=== PATIENT | female | born 1945 | race Caucasian/White ===

== ENCOUNTER 2017-07-26 12:07 | Inpatient (IN) | payer MEDICARE, BC ==
[2017-07-18 16:24] LABS: BASOPHILS # (AUTO) 0.1 X10'3 (0-0.2); BASOPHILS % (AUTO) 0.7 % (0-1); EOSINOPHILS # (AUTO) 0.3 X10'3 (0-0.9); EOSINOPHILS % (AUTO) 3.4 % (0-6); LYMPHOCYTES # (AUTO) 1.4 X10'3 (1.1-4.8); LYMPHOCYTES % (AUTO) 15.2 % (21-51); MEAN CORPUSCULAR HEMOGLOBIN 29.7 PG (27.0-31.0); MEAN CORPUSCULAR HGB CONC 33.5 % (33.0-36.5); MEAN CORPUSCULAR VOLUME 88.7 FL (78-98); MEAN PLATELET VOLUME 7.7 FL (7.4-10.4); MONOCYTES # (AUTO) 0.9 X10'3 (0-0.9); MONOCYTES % (AUTO) 9.3 % (2-12); NEUTROPHILS # (AUTO) 6.8 X10'3 (1.8-7.7); NEUTROPHILS % (AUTO) 71.4 % (42-75); PRE OP HEMATOCRIT 36.6 % (35.0-45.0); PRE OP HEMOGLOBIN 12.3 g/dL (12.0-16.0); PRE OP PLATELET COUNT 330 X10'3 (140-440); RED BLOOD COUNT 4.13 X10'6 (4.20-5.60); RED CELL DISTRIBUTION WIDTH 13.5 % (11.5-14.5)
[2017-07-18 16:36] LABS: PRE OP PROTIME 10.5 SECONDS (9.0-12.0)
[2017-07-18 16:48] LABS: ALBUMIN 3.9 G/DL (3.4-5.0); ALKALINE PHOSPHATASE 102 IU/L (46-116); BLOOD UREA NITROGEN 30 MG/DL (7-18); BUN/CREATININE RATIO 17.5 (6.6-38.0); CALCIUM 9.6 MG/DL (8.5-10.1); CHLORIDE 106 MMOL/L (99-107); CREATININE 1.71 MG/DL (0.40-0.90); PRE OP ALT 18 U/L (30-65); PRE OP ANION GAP 10 (8-16); PRE OP AST 16 U/L (10-37); PRE OP BILIRUB, TOTAL 0.3 MG/DL (0.0-1.0); PRE OP GLUCOSE 101 MG/DL (70-104); PRE OP POTASSIUM 4.3 MMOL/L (3.4-5.1); PRE OP SODIUM 144 MMOL/L (135-145); TOTAL CARBON DIOXIDE 28.3 MMOL/L (24-32); eGFR 29 ML/MIN
[~2017-07-26] VITALS: Ht 174 cm; Wt 85.7 kg
[2017-07-26] VITALS (18 sets, daily range): BP systolic 83–133; BP diastolic 46–80
[~2017-07-26 12:07] MED LIST: ATOR20TA PO; CLOP75TA35 PO; HYDR-565 PO; INSULIN PUMP; LEVO112T5 PO; ceFAZolin 2gm in dextrose, iso 100 ML IV ONE; famotidine 20mg tablet PO ONE; ringers solution, lacted 1,000 ML IV SCH; vancomycin inj 1,500 MG in normal saline 300ml IV soln IV ONE
[2017-07-26] MEDS ORDERED: tetracaine 1% (10mg/ml) pres. free inj. ONE (13:49)
[2017-07-26] MEDS ORDERED: MIDAZolam 1mg/ml 10ml vial ONE (13:51)
[2017-07-26] MEDS ORDERED: morphine sulfate /PF 0.5 MG/ML 10mL ampul ONE (13:51)
[2017-07-26] MEDS ORDERED: phenylephrine 10mg/ml inj. ONE (14:17)
[2017-07-26] MEDS ORDERED: albumin (Human) 5% 250ml 250 ML IV ONE ×2 (14:43→15:29)
[2017-07-26] MEDS ORDERED: ringers solution, lacted 1,000 ML IV SCH (14:44)
[2017-07-26] MEDS ORDERED: labetalol 20mg/4ml (5mg/ml) syringe IV PRN (14:45)
[2017-07-26] MEDS ORDERED: hydrALAZINE 20mg/ml inj. IV PRN (14:45)
[2017-07-26] MEDS ORDERED: ondansetron/PF 4mg/2ml inj IV PRN ×3 (14:45→16:05)
[2017-07-26] MEDS ORDERED: fentaNYL/PF 50MCG/1 ML 2ML syringe IV PRN ×2 (14:45)
[2017-07-26] MEDS ORDERED: morphine 4 MG/ML inj SYRINge IV PRN ×2 (14:45)
[2017-07-26] MEDS ORDERED: diphenhydrAMINE 50 mg/ml inj IV PRN (14:50)
[2017-07-26] MEDS ORDERED: ePHEDrine 50MG/ML INJ. ONE (14:50)
[2017-07-26] MEDS ORDERED: acetaminophen 325mg tablet PO PRN (16:05)
[2017-07-26] MEDS ORDERED: bisacodyl 10mg suppository rectal RC PRN (16:05)
[2017-07-26] MEDS ORDERED: diphenhydrAMINE 25mg capsule PO PRN (16:05)
[2017-07-26] MEDS ORDERED: HYDROmorphone inj. 0.5 MG/0.5 ML DISP.SYRIN IV PRN (16:05)
[2017-07-26] MEDS ORDERED: magnesium hydroxide 30ml (MOM) UD suspension PO PRN (16:05)
[2017-07-26] MEDS ORDERED: glucagon, human recombinant 1mg kit SUBCUT PRN (16:15)
[2017-07-26] MEDS ORDERED: dextrose 50%-water 50ml dispensing syringe IV PRN ×2 (16:15)
[2017-07-26] MEDS ORDERED: dextrose ORAL solution 15 GM/59 ML bottle PO PRN ×2 (16:15)
[2017-07-26] MEDS ORDERED: MESSAGE TO PHARMACY PO ONE (16:15)
[2017-07-26] MEDS ORDERED: insulin Lispro (HumaLOG) vial - multi-dose SQ SCH (16:15)
[2017-07-26] MEDS: diphenhydrAMINE 25mg capsule PO PRN (18:39)
[2017-07-26] MEDS ORDERED: HYDROmorphone 1 mg/ml syringe IV PRN (19:25)
[2017-07-26] MEDS: potassium Cl 20mEq in NS 1,000 ML IV SCH (19:28)
[2017-07-26] MEDS: sennosides 8.6mg tablet PO SCH (20:26)
[2017-07-26] MEDS ORDERED: insulin glargine (Lantus) pen - multi-dose SQ SCH (21:00)
[2017-07-26] MEDS: insulin pump.resvr SQ SCH (21:32)
[2017-07-26] MEDS: HYDROcodone/acetaminophen 10/325mg tab PO PRN (21:35)
[2017-07-27] MEDS: ceFAZolin 1GM/D5W- ADD-VANTAGE 50 ML IV SCH ×2 (00:08→08:29)
[2017-07-27] MEDS: diphenhydrAMINE 25mg capsule PO PRN (00:18)
[2017-07-27] MEDS: HYDROcodone/acetaminophen 10/325mg tab PO PRN ×5 (01:35→20:53)
[2017-07-27 02:00] VITALS: BP 92/56
[2017-07-27 05:00] VITALS: BP 97/58
[2017-07-27] MEDS: potassium Cl 20mEq in NS 1,000 ML IV SCH ×2 (05:24→18:47)
[2017-07-27] MEDS: insulin pump.resvr SQ SCH ×4 (07:00→20:54)
[2017-07-27 07:09] LABS: BASOPHILS % (AUTO) 0.5 % (0-1); EOSINOPHILS # (AUTO) 0.3 X10'3 (0-0.9); EOSINOPHILS % (AUTO) 3.6 % (0-6); HEMATOCRIT 31.2 % (35.0-45.0); HEMOGLOBIN 10.3 g/dl (12.0-16.0); LYMPHOCYTES # (AUTO) 1.2 X10'3 (1.1-4.8); LYMPHOCYTES % (AUTO) 14.5 % (21-51); MEAN CORPUSCULAR HEMOGLOBIN 29.4 PG (27.0-31.0); MEAN CORPUSCULAR HGB CONC 32.8 % (33.0-36.5); MEAN CORPUSCULAR VOLUME 89.5 FL (78-98); MEAN PLATELET VOLUME 8.1 FL (7.4-10.4); NEUTROPHILS # (AUTO) 6.1 X10'3 (1.8-7.7); NEUTROPHILS % (AUTO) 69.4 % (42-75); PLATELET COUNT 243 X10'3 (140-440); RED BLOOD COUNT 3.48 X10'6 (4.20-5.60); RED CELL DISTRIBUTION WIDTH 12.9 % (11.5-14.5); WHITE BLOOD COUNT 8.6 X10'3 (4.5-11.0)
[2017-07-27] MEDS ORDERED: ATOR20TA PO (07:36)
[2017-07-27] MEDS ORDERED: CLOP75TA15 PO (07:36)
[2017-07-27 07:46] LABS: ANION GAP 8 (8-16); CHLORIDE 107 MMOL/L (99-107); POTASSIUM 3.9 MMOL/L (3.5-5.1); SODIUM 142 MMOL/L (135-145)
[2017-07-27] MEDS: levoTHYROXINE 75mcg tablet PO SCH (08:29)
[2017-07-27] MEDS: clopidogrel 75mg tablet PO SCH (08:29)
[2017-07-27 10:00] VITALS: BP 103/49
[2017-07-27 18:00] VITALS: BP 127/61
[2017-07-27] MEDS: atorvastatin 20mg tablet PO SCH (20:51)
[2017-07-27] MEDS: sennosides 8.6mg tablet PO SCH (20:53)
[2017-07-27 22:00] VITALS: BP 108/56
[2017-07-28] MEDS: HYDROcodone/acetaminophen 10/325mg tab PO PRN ×5 (00:43→21:02)
[2017-07-28 06:00] VITALS: BP 136/61
[2017-07-28 06:25] LABS: BASOPHILS % (AUTO) 0.4 % (0-1); EOSINOPHILS # (AUTO) 0.2 X10'3 (0-0.9); EOSINOPHILS % (AUTO) 1.4 % (0-6); HEMATOCRIT 29.8 % (35.0-45.0); HEMOGLOBIN 9.9 g/dl (12.0-16.0); LYMPHOCYTES # (AUTO) 0.8 X10'3 (1.1-4.8); LYMPHOCYTES % (AUTO) 7.1 % (21-51); MEAN CORPUSCULAR HEMOGLOBIN 29.4 PG (27.0-31.0); MEAN CORPUSCULAR HGB CONC 33.3 % (33.0-36.5); MEAN CORPUSCULAR VOLUME 88.2 FL (78-98); MEAN PLATELET VOLUME 8.2 FL (7.4-10.4); MONOCYTES # (AUTO) 1.1 X10'3 (0-0.9); MONOCYTES % (AUTO) 10.2 % (2-12); NEUTROPHILS # (AUTO) 9.2 X10'3 (1.8-7.7); NEUTROPHILS % (AUTO) 80.9 % (42-75); PLATELET COUNT 216 X10'3 (140-440); RED BLOOD COUNT 3.38 X10'6 (4.20-5.60); RED CELL DISTRIBUTION WIDTH 13.4 % (11.5-14.5); WHITE BLOOD COUNT 11.3 X10'3 (4.5-11.0)
[2017-07-28] MEDS: insulin pump.resvr SQ SCH ×4 (07:00→21:00)
[2017-07-28] MEDS: potassium Cl 20mEq in NS 1,000 ML IV SCH (08:04)
[2017-07-28] MEDS: clopidogrel 75mg tablet PO SCH (09:41)
[2017-07-28] MEDS: levoTHYROXINE 75mcg tablet PO SCH (09:41)
[2017-07-28 18:00] VITALS: BP 146/61
[2017-07-28] MEDS: atorvastatin 20mg tablet PO SCH (21:00)
[2017-07-28] MEDS: sennosides 8.6mg tablet PO SCH (21:01)
[2017-07-28 22:00] VITALS: BP 127/67
[2017-07-29] MEDS: HYDROcodone/acetaminophen 10/325mg tab PO PRN ×4 (02:29→20:34)
[2017-07-29 05:00] VITALS: BP 103/65
[2017-07-29 06:43] LABS: BASOPHILS % (AUTO) 0.3 % (0-1); EOSINOPHILS # (AUTO) 0.4 X10'3 (0-0.9); EOSINOPHILS % (AUTO) 3.5 % (0-6); HEMATOCRIT 32.4 % (35.0-45.0); HEMOGLOBIN 10.7 g/dl (12.0-16.0); LYMPHOCYTES # (AUTO) 1.3 X10'3 (1.1-4.8); LYMPHOCYTES % (AUTO) 11.4 % (21-51); MEAN CORPUSCULAR HEMOGLOBIN 29.3 PG (27.0-31.0); MEAN CORPUSCULAR HGB CONC 33.1 % (33.0-36.5); MEAN CORPUSCULAR VOLUME 88.6 FL (78-98); MEAN PLATELET VOLUME 8.4 FL (7.4-10.4); MONOCYTES # (AUTO) 1.1 X10'3 (0-0.9); MONOCYTES % (AUTO) 9.8 % (2-12); NEUTROPHILS # (AUTO) 8.4 X10'3 (1.8-7.7); PLATELET COUNT 239 X10'3 (140-440); RED BLOOD COUNT 3.66 X10'6 (4.20-5.60); RED CELL DISTRIBUTION WIDTH 12.9 % (11.5-14.5); WHITE BLOOD COUNT 11.1 X10'3 (4.5-11.0)
[2017-07-29] MEDS: insulin pump.resvr SQ SCH ×4 (07:00→21:00)
[2017-07-29] MEDS: clopidogrel 75mg tablet PO SCH (08:14)
[2017-07-29] MEDS: levoTHYROXINE 75mcg tablet PO SCH (08:14)
[2017-07-29 19:00] VITALS: BP 145/78
[2017-07-29] MEDS: atorvastatin 20mg tablet PO SCH (20:28)
[2017-07-29] MEDS: sennosides 8.6mg tablet PO SCH (21:00)
[2017-07-29 22:00] VITALS: BP 150/57
[2017-07-30 05:00] VITALS: BP 128/66
[2017-07-30] MEDS: HYDROcodone/acetaminophen 10/325mg tab PO PRN ×2 (05:26→13:48)
[2017-07-30] MEDS: insulin pump.resvr SQ SCH ×2 (07:00→12:00)
[2017-07-30] MEDS: clopidogrel 75mg tablet PO SCH (09:38)
[2017-07-30] MEDS: levoTHYROXINE 75mcg tablet PO SCH (09:39)
[2017-07-30 10:00] VITALS: BP 124/58
[2017-07-30] MEDS ORDERED: insulin Lispro (HumaLOG) vial - multi-dose SQ ONE (10:55)
== END 2017-07-30 14:21 | DRG 617 ==
LOC: PAS 12:07 → ORTHO 4S 12:08 → PAS 16:04 → ORTHO 4S 16:04 → PAS 07-29 09:28 → UNDOADMIN 07-29 09:29 → ORTHO 4S 07-29 09:29 → ENPENDDIS 07-30 14:02 → ORTHO 4S 07-30 14:16
PROVIDERS: ADMIT Orthopaedic Surgery; ATTEND Orthopaedic Surgery
PROC: 0Y6N0ZF Detachment at Left Foot, Partial 5th Ray, Open Approach (ICD-10-PCS; principal; 2017-07-26 13:47)
DX: E10.621 Type 1 diabetes mellitus with foot ulcer (principal); D62 Acute posthemorrhagic anemia; L97.529 Non-pressure chronic ulcer of other part of left foot with unspecified severity; E03.9 Hypothyroidism, unspecified; E10.51 Type 1 diabetes mellitus with diabetic peripheral angiopathy without gangrene; E78.5 Hyperlipidemia, unspecified; N18.4 Chronic kidney disease, stage 4 (severe); E10.22 Type 1 diabetes mellitus with diabetic chronic kidney disease; I12.9 Hypertensive chronic kidney disease with stage 1 through stage 4 chronic kidney disease, or unspecified chronic kidney disease; M19.90 Unspecified osteoarthritis, unspecified site; G89.29 Other chronic pain; M54.9 Dorsalgia, unspecified; Z96.41 Presence of insulin pump (external) (internal); Z98.62 Peripheral vascular angioplasty status; Z91.011 Allergy to milk products; Z91.018 Allergy to other foods; Z79.899 Other long term (current) drug therapy; Z85.89 Personal history of malignant neoplasm of other organs and systems; Z92.3 Personal history of irradiation; Z87.891 Personal history of nicotine dependence
CPT/HCPCS: 36415; 80051; 80053; 82948; 83036; 84443; 85025; 85610; 85730; 97116; 97530; A6222; A6258; A6446; A6449; A7000; C1758; J0690; J1170; J1815; J2250; J2274; J2370; J3370; J3490; J7120; P9045; Q0163

== ENCOUNTER 2019-03-21 08:05 | Day surgery (SDC) | payer MEDICARE, BC ==
[~2019-03-21] VITALS: Ht 175.3 cm; Wt 75.7 kg
[~2019-03-21 08:05] MED LIST changes: +CLOP75TA15 PO; -CLOP75TA35 PO; -HYDR-565 PO; -ceFAZolin 2gm in dextrose, iso 100 ML IV ONE; -famotidine 20mg tablet PO ONE; -ringers solution, lacted 1,000 ML IV SCH; -vancomycin inj 1,500 MG in normal saline 300ml IV soln IV ONE
[2019-03-21] MEDS ORDERED: CLOP75TA35 PO (08:43)
[2019-03-21] MEDS ORDERED: HYDR-4353 PO (08:43)
[2019-03-21] MEDS ORDERED: BUPR-94 PO (08:43)
[2019-03-21] MEDS ORDERED: RAMI5CAP65 PO (08:43)
[2019-03-21] MEDS ORDERED: NAPR220T67 PO (08:43)
[2019-03-21] MEDS ORDERED: ACET-1008 PO (08:43)
[2019-03-21 09:23] VITALS: BP 112/70
== END 2019-03-21 09:25 | disposition home or self-care (01) ==
LOC: SSTAY O 08:05
PROVIDERS: ATTEND Radiology Diagnostic Radiology
DX: J90 Pleural effusion, not elsewhere classified (principal); E03.9 Hypothyroidism, unspecified; K21.9 Gastro-esophageal reflux disease without esophagitis; E78.5 Hyperlipidemia, unspecified; E11.40 Type 2 diabetes mellitus with diabetic neuropathy, unspecified; I12.9 Hypertensive chronic kidney disease with stage 1 through stage 4 chronic kidney disease, or unspecified chronic kidney disease; N18.9 Chronic kidney disease, unspecified; Z88.8 Allergy status to other drugs, medicaments and biological substances; Z91.09 Other allergy status, other than to drugs and biological substances; Z98.890 Other specified postprocedural states; Z98.1 Arthrodesis status; Z79.01 Long term (current) use of anticoagulants; Z79.899 Other long term (current) drug therapy; Z91.011 Allergy to milk products; Z91.018 Allergy to other foods
CPT/HCPCS: 76604

== ENCOUNTER 2019-09-25 13:26 | Day surgery (SDC) | payer MEDICARE, BC ==
[~2019-09-25 13:26] MED LIST changes: +BUDE3CAP15 PO; +BUPR-94 PO; -CLOP75TA15 PO; +CLOP75TA35 PO; +HYDR-4353 PO; +RAMI5CAP65 PO
[2019-09-25] MEDS ORDERED: LIDOcaine 2% 5ml jelly ONE (14:38)
== END 2019-09-25 15:50 | disposition home or self-care (01) ==
LOC: WOUND CARE 13:26
PROVIDERS: ATTEND Nurse Practitioner
DX: T81.89XA Other complications of procedures, not elsewhere classified, initial encounter (principal); E11.621 Type 2 diabetes mellitus with foot ulcer; L89.890 Pressure ulcer of other site, unstageable; L97.521 Non-pressure chronic ulcer of other part of left foot limited to breakdown of skin; L84 Corns and callosities; S91.312A Laceration without foreign body, left foot, initial encounter; E11.65 Type 2 diabetes mellitus with hyperglycemia; E11.40 Type 2 diabetes mellitus with diabetic neuropathy, unspecified; I25.10 Atherosclerotic heart disease of native coronary artery without angina pectoris; I10 Essential (primary) hypertension; E78.5 Hyperlipidemia, unspecified; E03.9 Hypothyroidism, unspecified; M19.90 Unspecified osteoarthritis, unspecified site; F32.9 Major depressive disorder, single episode, unspecified; Z96.651 Presence of right artificial knee joint; Z96.649 Presence of unspecified artificial hip joint; Z87.891 Personal history of nicotine dependence; Z79.4 Long term (current) use of insulin; X58.XXXA Exposure to other specified factors, initial encounter; Y93.89 Activity, other specified; Y92.89 Other specified places as the place of occurrence of the external cause; Y99.8 Other external cause status; Y83.8 Other surgical procedures as the cause of abnormal reaction of the patient, or of later complication, without mention of misadventure at the time of the procedure; Y92.238 Other place in hospital as the place of occurrence of the external cause
CPT/HCPCS: 73590; 73630; 97597

== ENCOUNTER 2019-10-01 13:30 | Day surgery (SDC) | payer MEDICARE, BC ==
[2019-10-01] MEDS ORDERED: LIDOcaine 2% 5ml jelly ONE (14:07)
== END 2019-10-01 15:12 | disposition home or self-care (01) ==
LOC: WOUND CARE 13:30
PROVIDERS: ATTEND Nurse Practitioner
DX: T81.89XD Other complications of procedures, not elsewhere classified, subsequent encounter (principal); E11.621 Type 2 diabetes mellitus with foot ulcer; L89.890 Pressure ulcer of other site, unstageable; L97.521 Non-pressure chronic ulcer of other part of left foot limited to breakdown of skin; L84 Corns and callosities; S91.312D Laceration without foreign body, left foot, subsequent encounter; E11.65 Type 2 diabetes mellitus with hyperglycemia; E11.40 Type 2 diabetes mellitus with diabetic neuropathy, unspecified; I10 Essential (primary) hypertension; I25.10 Atherosclerotic heart disease of native coronary artery without angina pectoris; E78.5 Hyperlipidemia, unspecified; E03.9 Hypothyroidism, unspecified; M19.90 Unspecified osteoarthritis, unspecified site; F32.9 Major depressive disorder, single episode, unspecified; Z96.651 Presence of right artificial knee joint; Z96.649 Presence of unspecified artificial hip joint; Z87.891 Personal history of nicotine dependence; Z79.4 Long term (current) use of insulin; X58.XXXD Exposure to other specified factors, subsequent encounter; Y83.8 Other surgical procedures as the cause of abnormal reaction of the patient, or of later complication, without mention of misadventure at the time of the procedure
CPT/HCPCS: 73590; 97597

== ENCOUNTER 2019-10-08 13:20 | Day surgery (SDC) | payer MEDICARE, BC ==
[2019-10-08] MEDS ORDERED: LIDOcaine 2% 5ml jelly ONE (14:07)
== END 2019-10-08 14:50 | disposition home or self-care (01) ==
LOC: WOUND CARE 13:20
PROVIDERS: ATTEND Nurse Practitioner
DX: T81.89XD Other complications of procedures, not elsewhere classified, subsequent encounter (principal); E11.621 Type 2 diabetes mellitus with foot ulcer; L89.890 Pressure ulcer of other site, unstageable; L97.521 Non-pressure chronic ulcer of other part of left foot limited to breakdown of skin; L84 Corns and callosities; S91.312D Laceration without foreign body, left foot, subsequent encounter; E11.65 Type 2 diabetes mellitus with hyperglycemia; E11.40 Type 2 diabetes mellitus with diabetic neuropathy, unspecified; I10 Essential (primary) hypertension; I25.10 Atherosclerotic heart disease of native coronary artery without angina pectoris; E78.5 Hyperlipidemia, unspecified; E03.9 Hypothyroidism, unspecified; M19.90 Unspecified osteoarthritis, unspecified site; F32.9 Major depressive disorder, single episode, unspecified; Z96.651 Presence of right artificial knee joint; Z96.649 Presence of unspecified artificial hip joint; Z87.891 Personal history of nicotine dependence; Z79.4 Long term (current) use of insulin; X58.XXXD Exposure to other specified factors, subsequent encounter; Y83.8 Other surgical procedures as the cause of abnormal reaction of the patient, or of later complication, without mention of misadventure at the time of the procedure
CPT/HCPCS: 15275; Q4196